=== PATIENT | female | born 1965 | race Caucasian/White ===

== ENCOUNTER 2020-05-21 15:33 | Outpatient (CLI) | payer OTHER, SELFPAY ==
--- NOTE | ~2020-05-21 | MM_ITS ---
EXAMINATION: MM screening mely BI w nyasia HISTORY: Screening mammogram TECHNIQUE: Craniocaudal and mediolateral oblique 3-D tomosynthesis images were obtained and synthetic 2-D images were generated. CAD analysis was submitted and interpreted. COMPARISON: 05/06/2019, 10/29/2015, 07/25/2013 bilateral digital screening mammogram examinations BREAST PARENCHYMAL COMPOSITION: There are scattered areas of fibroglandular density. FINDINGS: Bilateral stable benign intramammary lymph nodes. There is no evidence of suspicious mass, calcification, or architectural distortion to suggest malignancy in either breast. There has been no suspicious interval change. IMPRESSION: 1. No mammographic evidence of malignancy. 2. Recommend routine screening mammography in one year. BI-RADS Category 2: Benign finding(s). Reviewed, dictated and finalized at location A.
== END 2020-05-21 15:34 | disposition home or self-care (01) ==
LOC: ANHIMG 15:36
PROVIDERS: PCP Internal Medicine; Visit Provider Student in an Organized Health Care Education/Training Program
DX: Z12.31 Encounter for screening mammogram for malignant neoplasm of breast (principal)
CPT/HCPCS: 77063; 77067

== ENCOUNTER 2020-07-20 02:30 | Outpatient (CLI) | payer OTHER, SELFPAY ==
[2020-07-20 22:41] LABS: SARS-CoV-2 RNA PCR Negative
== END 2020-07-20 02:31 | disposition home or self-care (01) ==
LOC: ANHCOVIDDT 02:31
PROVIDERS: PCP Internal Medicine; Visit Provider Internal Medicine Gastroenterology
DX: Z01.812 Encounter for preprocedural laboratory examination (principal); Z11.59 Encounter for screening for other viral diseases
CPT/HCPCS: 87635; C9803; U0003

== ENCOUNTER 2020-07-23 00:53 | Day surgery (SDC) | payer OTHER, SELFPAY ==
[2020-07-16 13:24] VITALS: BMI 28.0
[2020-07-23 07:14] VITALS: BP 155/88; PULSE 85; RESP 16; TEMP 36.8; O2SAT 100; BMI 28.8
[2020-07-23] MEDS: LACTATED RINGERS 1,000 ML 150 ML IV CONT (07:29)
--- NOTE | 2020-07-23 07:51 | WPDGICN ---
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 Lundberg syndrome has been confirmed in the family. Plan is for patient have surveillance colonoscopy now and at 2-3 year intervals in the future. (3) Dysphagia: Code(s): R13.10 - Dysphagia, unspecified Status: Acute Assessment and Plan: Because of difficulty swallowing and prior history of esophageal stricture ring an EGD will be performed. Continuing Prilosec daily appears appropriate at this time. GI Consult Note Consult date/time: 07/23/20 07:51 HPI: Jolynn Hernandez is a 55 year old female Presents for surveillance colonoscopy. Patient has a family history of Lundberg syndrome. Patient presents for surveillance examination patient reports her current weight appetite bowel movements are normal. Family history is significant her mother had colon cancer and endometrial cancer was known to have Lundberg syndrome. Patient in reports her bowel habits are normal. She has had no bleeding or weight loss. A colonoscopy will be performed now and should be performed about 2-3 year intervals in the future. Additionally patient complains of difficulty swallowing. Solid foods will catch in the mid substernal portion of the chest. She has a distant history of esophageal stricture ring. She denies any weight loss pain or bleeding. She has been taken Prilosec 20 mg every other day. 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 Glaucoma Post hysterectomy menopause full term x2 Surgical History Surgical History H/O total hysterectomy with removal of both tubes and ovaries History of endometrial ablation Family History Family History Father Hypertension Sibling Patient's brother is in good health Mother Carcinoma of colon Family history of malignant neoplasm of uterus Grandparent Carcinoma of colon Other Cerebrovascular accident Social History Social History Smoking status: Never smoker Second hand tobacco smoke exposure: No Alcohol intake: never Substance use: never Substance use type: does not use Living arrangements: with family Spiritual care concerns: No Meds Home Medications and Allergies Home Medications Medication Instructions Recorded Confirmed Type calcium carbonate 600 mg calcium 600 mg PO DAILY 03/30/20 07/23/20 History (1,500 mg) tablet cholecalciferol (vitamin D3) 125 125 mcg PO DAILY 03/30/20 07/23/20 History mcg (5,000 unit) capsule methyltetrahydrofolate glucosa 30 30 mg PO DAILY 03/30/20 07/23/20 History mg tablet,extended release omeprazole magnesium 20 mg 20 mg PO DAILY 03/30/20 07/23/20 History tablet,delayed release Allergies Allergy/AdvReac Type Severity Reaction Status Date / Time Penicillins Allergy Unknown Rash Verified 07/23/20 07:13 Vital Signs Vital Signs - 24 hr 07/23/20 07:14 Temperature 98.3 F Pulse Rate 85 Respiratory Rate 16 Blood Pressure 155/88 H Pulse Oximetry 100 Exam Narrative: Exam Narrative: Physical exam reveals Vital Signs to be stable. HEENT exam is unremarkable. Patient is anicteric. Lungs are clear to auscultation and percussion. Heart is without murmur or extra sounds. Abdominal exam bowel sounds are present soft nontender with no organ
--- NOTE | 2020-07-23 08:11 | WPDANESEPPF ---
Anes - Initial Pre Proc Eval Procedure: Operation Date: 07/23/20 08:30 Proposed Procedures p Esophagogastroduodenoscopy & Screening Colonoscopy - Skyler Flores MD Date/Time: 07/23/20 08:11 Surgeon: Skyler Flores MD Pre Op Diagnosis: Neoplasm Screening/Hx Colon Polyps/Dysphagia Patient Data Age: 55 Gender: F Height: 5 ft 9 in Weight: 88.4 kg Last Vital Signs Temp 36.8 C 07/23/20 07:14 Pulse 85 07/23/20 07:14 Resp 16 07/23/20 07:14 BP 155/88 H 07/23/20 07:14 Pulse Ox 100 07/23/20 07:14 Allergies Allergy/AdvReac Type Severity Reaction Status Date / Time Penicillins Allergy Unknown Rash Verified 07/23/20 07:13 Home Medications Medication Instructions Recorded Confirmed Type calcium carbonate 600 mg calcium 600 mg PO DAILY 03/30/20 07/23/20 History (1,500 mg) tablet cholecalciferol (vitamin D3) 125 125 mcg PO DAILY 03/30/20 07/23/20 History mcg (5,000 unit) capsule methyltetrahydrofolate glucosa 30 30 mg PO DAILY 03/30/20 07/23/20 History mg tablet,extended release omeprazole magnesium 20 mg 20 mg PO DAILY 03/30/20 07/23/20 History tablet,delayed release Patient hx anesthesia problems: none Family hx anesthesia problems: none PMFSH Past Medical History Medical History 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 Glaucoma Post hysterectomy menopause full term x2 Surgical History Surgical History H/O total hysterectomy with removal of both tubes and ovaries History of endometrial ablation Family History Family History Father Hypertension Sibling Patient's brother is in good health Mother Carcinoma of colon Family history of malignant neoplasm of uterus Grandparent Carcinoma of colon Other Cerebrovascular accident Social History Social History Smoking status: Never smoker Second hand tobacco smoke exposure: No Alcohol intake: never Substance use: never Substance use type: does not use Living arrangements: with family Spiritual care concerns: No Anes - Eval Final PreProcedure Day of Procedure 07/23/20 08:11 Patient weight: overweight Heart: regular rate and rhythm Lungs: clear to auscultation Airway: Mallampati scale class II Neurological: alert and oriented Last oral intake: >/= 8 hours ASA classification: II Emergent: no Anesthetic plan: proceed Anesthesia type and monitoring: general GIVS and standard monitoring Informed Consent: The patient's anesthetic plan and its attendant risks and benefits were discussed with the patient/family/POA. Questions were solicited and answers provided to the satisfaction of the patient/family/POA.
[2020-07-23 09:01] VITALS: BP 136/79; PULSE 79; RESP 21; O2SAT 100
[2020-07-23 09:11] VITALS: BP 134/86; PULSE 72; RESP 18; O2SAT 100
[2020-07-23 09:21] VITALS: BP 135/97; PULSE 73; RESP 17; O2SAT 100
== END 2020-07-23 09:35 | disposition home or self-care (01) ==
PROVIDERS: PCP Internal Medicine; Visit Provider Internal Medicine Gastroenterology
PROC: 0DJ08ZZ Inspection of Upper Intestinal Tract, Via Natural or Artificial Opening Endoscopic (ICD-10-PCS; CPT 43235; principal; 2020-07-23 08:30)
DX: Z12.11 Encounter for screening for malignant neoplasm of colon (principal); Z15.09 Genetic susceptibility to other malignant neoplasm; R13.10 Dysphagia, unspecified; Z80.0 Family history of malignant neoplasm of digestive organs; K64.8 Other hemorrhoids
CPT/HCPCS: 43450; 43235; 45378; C9803; J2001; J2704; J7120; U0003

== ENCOUNTER 2021-12-06 08:46 | Outpatient (CLI) | payer OTHER, SELFPAY ==
--- NOTE | ~2021-12-06 | MM_ITS ---
EXAMINATION: MM screening mely BI w nyasia HISTORY: Screening mammogram TECHNIQUE: Craniocaudal and mediolateral oblique 3-D tomosynthesis images were obtained and synthetic 2-D images were generated. CAD analysis was submitted and interpreted. COMPARISON: 05/21/2020, 05/06/2019, 10/29/2015 bilateral screening mammogram examinations BREAST PARENCHYMAL COMPOSITION: There are scattered areas of fibroglandular density. FINDINGS: There is a new circumscribed 5.4 mm mass in the mid to lower inner left breast. Diagnostic left mammogram and left breast ultrasound examination are recommended. Stable small benign intramammary lymph nodes are noted in both axillary tail areas. Otherwise there is no evidence of suspicious mass, calcification, or architectural distortion to sugg est malignancy in either breast. There has been no other suspicious interval change. IMPRESSION: 1. Interval 5.4 mm circumscribed opacity at mid depth in the inner mid to lower left breast 2. Diagnostic left mammogram and left breast ultrasound examination are recommended BI-RADS Category 0: Incomplete: Needs additional imaging evaluation. Reviewed, dictated and finalized at location A. IMPRESSION: 1. Interval 5.4 mm circumscribed opacity at mid depth in the inner mid to lower left breast 2. Diagnostic left mammogram and left breast ultrasound examination are recomme nded BI-RADS Category 0: Incomplete: Needs additional imaging evaluation.
== END 2021-12-06 08:47 | disposition home or self-care (01) ==
LOC: ANHIMG 08:47
PROVIDERS: PCP Internal Medicine; Visit Provider Student in an Organized Health Care Education/Training Program
DX: Z12.31 Encounter for screening mammogram for malignant neoplasm of breast (principal); R92.8 Other abnormal and inconclusive findings on diagnostic imaging of breast
CPT/HCPCS: 77063; 77067

== ENCOUNTER 2021-12-08 14:02 | Outpatient (CLI) | payer OTHER, SELFPAY ==
--- NOTE | ~2021-12-08 | MMUS_ITS ---
EXAMINATION: MM diagnostic mely LT w nyasia, US breast LT limited HISTORY: Interval 5.4 mm circumscribed opacity at mid depth at the inner mid to lower left breast rep orted on 12/23/2021 screening mammogram TECHNIQUE: Additional 3-D tomosynthesis images of the left breast were performed and synthetic 2-D im ages were generated. CAD analysis was submitted and interpreted. High resolution upper inner and lowe r inner left breast ultrasound was performed. COMPARISON: 01/02/2022 bilateral screening mammogram FINDINGS: MAMMOGRAPHIC FINDINGS: No suspicious reproducible mass is detected. Benign-appearing circumscribed opacity in the posterior upper outer left breast consistent with lymph node. ULTRASOUND: Real-time imaging of upper inner and lower inner quadrants of left breast reveals no evidence of susp icious mass or shadowing. IMPRESSION: 1. No mammographic evidence of malignancy 2. Routine mammographic screening is recommended. BI-RADS Category 1: Negative Reviewed, dictated and finalized at location A. IMPRESSION: 1. No mammographic evidence of malignancy 2. Routine mammographic screening is recommended. BI-RADS Category 1: Negative
== END 2021-12-08 14:03 | disposition home or self-care (01) ==
PROVIDERS: PCP Internal Medicine; Visit Provider Student in an Organized Health Care Education/Training Program
DX: R92.8 Other abnormal and inconclusive findings on diagnostic imaging of breast (principal)
CPT/HCPCS: 76642; 77061; 77065; G0279

== ENCOUNTER 2022-02-10 01:48 | Day surgery (SDC) | payer OTHER, SELFPAY ==
[2022-02-07 12:04] VITALS: BMI 28.3
--- NOTE | 2022-02-07 12:16 | PC.NURSE ---
Report to the Outpatient Waiting Room, entrance under the green pavilion located off [facility], at time 1000 on date 02/10/22. OR Time: 1200. - You and your visitor will be asked a series of questions to screen for COVID 19 for your protection. - Only one visitor is allowed at this time. - The patient visitor is requested to leave or wait in car when not with patient. - A mask is required within the hospital. Patients may have clear liquids (water, carbonated beverages, clear teas, apple juice) until 3 hours prior to surgery with a maximum of 20 ounces. - No food from midnight until time of surgery Take the following medications with a SIP of water the morning of surgery: NONE Medications to discontinue per physician: VITAMINS/SUPPLEMENTS Date to take last dose: 02/06/22 Please no make-up, nail emirati, hairspray, perfume, deodorant, or body powder the day of surgery. No jewelry (including any body piercings) or valuables the day of surgery, leave them at home. Please take a shower or bath the night before, or the morning of, surgery with an antibacterial soap. Wear comfortable, loose fitting clothing. - Jewelry must be removed prior to entering the operating room. Rings and piercings that are not removed may be cut off. - The hospital will not accept responsibility for valuables. - Please leave all valuables, including medications, at home the day of surgery. If you are going home after surgery, a licensed minibus driver must drive you home. - NO public transportation without another adult. - We recommend that an adult stay with you for 24 hours following discharge. - We also recommend that you do not drive, make important decision, drink alcoholic beverages, or take any drugs that were not prescribed by your health care provider for at least 24 hours after your discharge time. Follow any additional instructions given to you from your surgeon. If you or anyone in your household have experienced Covid symptoms in the past week, please notify your surgeon or the nurse liaison at the phone number below for possible testing. Telephone instructions given to PT - GRACIELA MCCRACKEN and asked if any additional questions and then verbalized understanding. Patient advised to call surgeon office or pre surgery nurse liaison [phone] if any additional questions.
--- NOTE | 2022-02-09 10:53 | WPDANESEPPF ---
Anes - Initial Pre Proc Eval Procedure: Operation Date: 02/10/22 12:00 Proposed Procedures p Bilateral Inferior Turbinectomy with Outfracture - Pool Mendez MD s Endoscopic Septoplasty - Pool Mendez MD Date/Time: 02/09/22 10:53 Surgeon: Pool Mendez MD Pre Op Diagnosis: septal deviation, turbinate hypertrophy Patient Data Age: 56 Gender: F Height: 1.77 m Weight: 88.45 kg Allergies Allergy/AdvReac Type Severity Reaction Status Date / Time Penicillins Allergy Unknown Rash Verified 02/10/22 09:24 Home Medications Medication Instructions Recorded Confirmed Type calcium carbonate 600 mg calcium 600 mg PO DAILY 03/30/20 02/10/22 History (1,500 mg) tablet (Calcium) cholecalciferol (vitamin D3) 125 125 mcg PO DAILY 03/30/20 02/10/22 History mcg (5,000 unit) capsule omeprazole magnesium 20 mg 20 mg PO DAILY 03/30/20 02/10/22 History tablet,delayed release (Prilosec OTC) magnesium oxide 400 mg (241.3 mg 400 mg PO DAILY 04/05/21 02/10/22 History magnesium) tablet omega-3 fatty acids 1,000 mg 1,000 mg PO DAILY 04/05/21 02/10/22 History capsule (Fish Oil Concentrate) azelastine 137 mcg (0.1 %) nasal See Rx Instructions .Route 12/06/21 02/10/22 Rx spray aerosol .COMPLEX #30 mL fluticasone propionate 50 1 spray intranasal BID 02/07/22 02/10/22 History mcg/actuation nasal spray,suspension multivitamin 1 tablet PO DAILY 02/07/22 02/10/22 History Patient hx anesthesia problems: none Family hx anesthesia problems: none Results Review: All pre-operative results and documents have been reviewed as part of the pre-operative evaluation. 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 Chronic GERD Glaucoma VASHTI (obstructive sleep apnea) Post hysterectomy menopause full term x2 Surgical History Surgical History H/O total hysterectomy with removal of both tubes and ovaries History of section x 2 History of endometrial ablation Family History Family History Father Hypertension Sibling Patient's brother is in good health Mother Carcinoma of colon Family history of malignant neoplasm of uterus Grandparent Carcinoma of colon Other Cerebrovascular accident Social History Social History Smoking status: Never smoker Second hand tobacco smoke exposure: No Alcohol intake: never Substance use: never Substance use type: does not use Living arrangements: with family Spiritual care concerns: No Anes - Eval Final PreProcedure Day of Procedure 02/09/22 10:53 Patient weight: overweight Heart: regular rate and rhythm Lungs: clear to auscultation Airway: Mallampati scale class II Neurological: alert and oriented Last oral intake: >/= 8 hours ASA classification: II Emergent: no Anesthetic plan: proceed Anesthesia type and monitoring: general ETT and standard monitoring Results Review: All pre-operative results and documents have been reviewed as part of the pre-operative evaluation. Informed Consent: The patient's anesthetic plan and its attendant risks and benefits were discussed with the patient/family/POA. Questions were solicited and answers provided to the satisfaction of the patient/family/POA.
--- NOTE | 2022-02-09 16:47 | PM.IMHP ---
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 Chronic GERD Glaucoma VASHTI (obstructive sleep apnea) Post hysterectomy menopause full term x2 Surgical History Surgical History H/O total hysterectomy with removal of both tubes and ovaries History of section x 2 History of endometrial ablation Family History Family History Father Hypertension Sibling Patient's brother is in good health Mother Carcinoma of colon Family history of malignant neoplasm of uterus Grandparent Carcinoma of colon Other Cerebrovascular accident Social History Social History (Reviewed 12/29/21 @ 10:44 by Jewell Lamb [facility]) Smoking status: Never smoker Second hand tobacco smoke exposure: No Alcohol intake: never Substance use: never Substance use type: does not use Living arrangements: with family Spiritual care concerns: No Meds Home Medications and Allergies Home Medications Medication Instructions Recorded Confirmed Type calcium carbonate 600 mg calcium 600 mg PO DAILY 03/30/20 02/07/22 History (1,500 mg) tablet (Calcium) cholecalciferol (vitamin D3) 125 125 mcg PO DAILY 03/30/20 02/07/22 History mcg (5,000 unit) capsule omeprazole magnesium 20 mg 20 mg PO DAILY 03/30/20 02/07/22 History tablet,delayed release (Prilosec OTC) magnesium oxide 400 mg (241.3 mg 400 mg PO DAILY 04/05/21 02/07/22 History magnesium) tablet omega-3 fatty acids 1,000 mg 1,000 mg PO DAILY 04/05/21 02/07/22 History capsule (Fish Oil Concentrate) azelastine 137 mcg (0.1 %) nasal See Rx Instructions .Route 12/06/21 02/07/22 Rx spray aerosol .COMPLEX #30 mL fluticasone propionate 50 1 spray intranasal BID 02/07/22 02/07/22 History mcg/actuation nasal spray,suspension multivitamin 1 tablet PO DAILY 02/07/22 02/07/22 History Allergies Allergy/AdvReac Type Severity Reaction Status Date / Time Penicillins Allergy Unknown Rash Verified 02/07/22 12:01 Exam Narrative: Septal deviation turbinate hypertrophy Assessment and Plan Assessment and plan (1) Hypertrophy of both inferior nasal turbinates: Code(s): J34.3 - Hypertrophy of nasal turbinates Status: Acute Assessment and Plan: ?Plan is for the operating room for septoplasty endoscopic assisted as well as turbinate reduction submucosal with outfracture.? Risks were discussed including bleeding infection damage to surrounding structures blindness change in vision CSF leak brain damage septal perforation need for further procedures postoperative bleeding.? Patient voiced understanding of all these risks and agreed.? Also the musculoskeletal bruising injury from surgery induction and maintenance of anesthesia damage to any structure damage to any structure above the clavicles by myself.? Will consider hemitransection versus killing given anterior nature of deviation. (2) Nasal congestion: Code(s): R09.81 - Nasal congestion Status: Acute (3) Nasal obstruction: Code(s): J34.89 - Other specified disorders of nose and nasal sinuses Status: Acute (4) Nasal septal deviation: Code(s): J34.2 - Deviated nasal septum Status: Acute
[2022-02-10] VITALS (10 sets, daily range): BP systolic 143–175; BP diastolic 77–108; PULSE 82–92; RESP 12–30; TEMP 36.3–36.7; O2SAT 97–100
--- NOTE | 2022-02-10 07:16 | WPDHPUPDATE1 ---
History and Physical Update Update Date/Time: 02/10/22 07:16 History and Physical has been reviewed, including an updated exam of the patient. There are NO changes in the patient's condition. Risks, benefits, and alternatives have been discussed and questions answered. Patient agrees to proceed with procedure.
[2022-02-10] MEDS: LACTATED RINGERS 1,000 ML 30 ML IV CONT ×2 (09:34→10:42)
[2022-02-10] MEDS: ACETAMINOPHEN 500 MG TABLET 1000 MG PO (09:35)
[2022-02-10] MEDS: ceFAZolin 2 GM/D5W 50 ML 2 GM/50 ML BAG IVPB (09:40)
[2022-02-10] MEDS: OXYMETAZOLINE HCL 0.05% NAS 15 ML BTL (*BKC) 1 SPRAY NASAL (10:02)
[2022-02-10] MEDS: MUPIROCIN 2% OINT 22 GM TUBE 1 APPLIC EACH NARE (10:24)
[2022-02-10] MEDS: LIDO 1%/EPINEPHRINE/PF 1:200,000 30 ML VIAL XX (10:27)
--- NOTE | 2022-02-10 11:02 | P.OP_ITS ---
Procedure Note - Detailed Date of Procedure 02/10/22 Pre-op Diagnosis septal deviation, turbinate hypertrophy , nasal congestion, nasal obstruction Post-op Diagnosis Same Procedure Performed endoscopic assisted septoplasty, inferior turbinate submucosal resection with outfracture Surgeon Pool Mendez MD Anesthesia General Indications see above Findings severely mid to posterior deviated septum large bony spur all removed small perforation on the left nothing on the right looks great postoperatively severely hypertrophied turbinates well reduced minimal bleeding Description of Procedure patient identified consent verified. Patient brought operating. Time-out performed. General anesthesia induced. Endotracheal tube secured. Patient prepped and draped for procedure 2nd time-out performed. Afrin-soaked pledgets placed allowed to sit for 5 minutes then removed. 0 degree endoscope used. Total of about 15 cc 1% lidocaine 1 100,000 parts epinephrine injected deep to the sub mucoperichondrial plane in the bilateral nasal septum and anterior heads of the inferior turbinates. Cuthbert incision made left-sided 15 blade adequate strut left. Left nasal septal flap elevated 7 Bulgarian suction small tear over the severe spur. Crossed over with osteotome right-sided flap elevated with 7 Bulgarian suction. Deviated septum removed combination Julia forceps Donn Sagastume forceps and osteotome as well as deep blade. Nasal septum looks great small perforation left side closed anteriorly 3 interrupted 5 0 fast gut sutures. Inferior turbinates reduced submucosal plane with a microdebrider 2 mm turbinate blade this was bilateral. They were then outfractured with a [place]ow. Great reduction great outfracture. Bilateral nasal passage suction to the posterior choana no active bleeding total blood loss about 20 cc. Kaye splints covered in mupirocin then placed bilaterally sutured anteriorly with a 3 0 mattress nylon suture. I performed all dictated portions no complications. Patient tolerated the procedure excellently. Taken to PACU no complications. Estimated Blood Loss -20.0 Drains No Packing No Pathology None sent Complications No immediate complications Condition Stable Disposition PACU
--- NOTE | 2022-02-10 11:08 | SUR.PHASEI ---
DR. MACKENZIE NOTIFIED OF ELEVATED BP'S; ORDERED 10 MG HYDRALAZINE IVP.
[2022-02-10] MEDS: hydrALAZINE HCL 20 MG/ML VIAL 10 MG IV PUSH (11:12)
--- NOTE | 2022-02-10 11:38 | SUR.PHASEI ---
DR. MACKENZIE CALLED RE: BP 170/98; NO INTERVENTIONS AT THIS TIME.
[2022-02-10] MEDS: oxyCODONE HCL (*CRX) 5 MG TAB IR PO (12:58)
== END 2022-02-10 12:59 | disposition home or self-care (01) ==
PROVIDERS: PCP Internal Medicine; Visit Provider Otolaryngology
PROC: (CPT 30520; principal; 2022-02-10 12:00)
PROC: (CPT 30520; 2022-02-10 12:00)
DX: J34.2 Deviated nasal septum (principal); J34.3 Hypertrophy of nasal turbinates; R09.81 Nasal congestion; J34.89 Other specified disorders of nose and nasal sinuses; K21.9 Gastro-esophageal reflux disease without esophagitis; G47.33 Obstructive sleep apnea (adult) (pediatric)
CPT/HCPCS: 30520; 30140; A9270; J0360; J0690; J1100; J1170; J2250; J2405; J2704; J3010; J7120

== ENCOUNTER 2022-04-03 07:18 | Day surgery (SDC) | payer OTHER, SELFPAY ==
[2022-04-03] VITALS (12 sets, daily range): BP systolic 120–175; BP diastolic 76–106; PULSE 84–107; RESP 14–25; TEMP 36.4–36.6; O2SAT 94–100
--- NOTE | 2022-04-03 07:45 | ECG_ITS ---
Measurements Intervals Ollie Rate: 89 P: 21 VA: 162 QRS: 4 QRSD: 85 T: 37 QT: 354 QTc: 433 Interpretive Statements SINUS RHYTHM LOW QRS VOLTAGE IN PRECORDIAL LEADS [QRS DEFLECTION < 1.0 mV IN CHEST LEADS] CANNOT EXCLUDE PREVIOUS ANTEROSEPTAL IN NO PREVIOUS ECG AVAILABLE FOR COMPARISON Electronically Signed On 04-03-2022 16:58:50 CDT by Tye Ludwig M.D.
[2022-04-03] MEDS: GLUCAGON FOR INJ 1 MG VIAL IM (07:51)
--- NOTE | 2022-04-03 08:11 | ED.SKABFB ---
HPI - Skin/Abscess/Foreign Bdy General Chief complaint: Skin/Abscess/Foreign Body Stated complaint: there is something stuck in my esophagus Time Seen by Provider: 04/03/22 07:41 History of Present Illness HPI narrative: Pt ate candied orange slice last night and felt like it didn't completely go down but was able to swallow secretions. Pt states this morning she ate candied nuts and they got stuck and she is not able to swallow saliva now. Pt has history of esophageal strictures and has been scoped and dilated by Dr Harper in past. Related Data Home Medications Medication Instructions Recorded Confirmed calcium carbonate 600 mg calcium 600 mg PO DAILY 03/30/20 04/03/22 (1,500 mg) tablet (Calcium) cholecalciferol (vitamin D3) 125 125 mcg PO DAILY 03/30/20 04/03/22 mcg (5,000 unit) capsule omeprazole magnesium 20 mg 20 mg PO DAILY 03/30/20 04/03/22 tablet,delayed release (Prilosec OTC) magnesium oxide 400 mg (241.3 mg 400 mg PO DAILY 04/05/21 04/03/22 magnesium) tablet omega-3 fatty acids 1,000 mg 1,000 mg PO DAILY 04/05/21 04/03/22 capsule (Fish Oil Concentrate) fluticasone propionate 50 1 spray intranasal BID 02/07/22 04/03/22 mcg/actuation nasal spray,suspension multivitamin 1 tablet PO DAILY 02/07/22 04/03/22 Allergies Allergy/AdvReac Type Severity Reaction Status Date / Time Penicillins Allergy Unknown Rash Verified 04/03/22 11:43 Review of Systems Review of Systems: All systems reviewed & are unremarkable except as noted in HPI and below PMFSH Past Medical History Medical History 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 Chronic GERD Glaucoma VASHTI (obstructive sleep apnea) Post hysterectomy menopause full term x2 Surgical History Surgical History H/O total hysterectomy with removal of both tubes and ovaries History of section x 2 History of endometrial ablation Family History Family History Father Hypertension Sibling Patient's brother is in good health Mother Carcinoma of colon Family history of malignant neoplasm of uterus Grandparent Carcinoma of colon Other Cerebrovascular accident Social History Social History Smoking status: Never smoker Second hand tobacco smoke exposure: No Alcohol intake: never Substance use: never Substance use type: does not use Spiritual care concerns: No Exam Const: General: healthy appearing and no acute distress Nutritional Appearance: well nourished Orientation/consciousness: patient oriented x3 Limitations: no limitations Chest: Chest palpation & inspection: normal inspection of the chest Resp: Effort & Inspection: normal respiratory effort Auscultation: clear to auscultation bilaterally Cardio: Rate: regular rate Rhythm: regular rhythm GI: GI Palp: Yes Soft to palpation Auscultation: normal bowel sounds Skin: General skin exam: normal color Rashes: no rashes Neuro: General: patient oriented x3, moves all extremities, no meningeal signs and no focal motor deficits Extrem: General: normal to inspection and no clubbing, cyanosis or edema Psych: Mental Status: mental status grossly normal Affect: normal affect Attitude: cooperative Course Course Emergency Course: [place] [address] will try to work pt in for scope this morning Vital Signs Vital signs: Vital Signs Temperature 97.9 F 04/03/22 07:30 Pulse Rate 103 H 04/03/22 07:30 Respiratory Rate 22 H 04/03/22 07:30 Blood Pressure 170/102 H 04/03/22 07:30 Pulse Oximetry 100 04/03/22 07:30 Oxygen Delivery Room Air 04/03/22 07:30 Temperature 97.6 F 04/03/22 11:50 Pulse Rate 87 04/03/22 12:52 Respiratory Rate 25 H 04/03/22 12:52 Blood Pressure 127/83 04/03/22 12:5
[2022-04-03] MEDS: LACTATED RINGERS 1,000 ML 150 ML IV CONT (11:47)
--- NOTE | 2022-04-03 11:50 | WPDANESEPPF ---
Anes - Initial Pre Proc Eval Procedure: Operation Date: 04/03/22 12:30 Proposed Procedures p Esophagogastroduodenoscopy EGD - Skyler Flores MD Date/Time: 04/03/22 11:50 Surgeon: Skyler Flores MD Pre Op Diagnosis: there is something stuck in my esophagus Patient Data Age: 57 Gender: F Height: 1.77 m Weight: 88.6 kg Last Vital Signs Temp 36.6 C 04/03/22 07:30 Pulse 96 04/03/22 10:01 Resp 14 04/03/22 10:01 BP 162/105 H 04/03/22 10:31 Pulse Ox 97 04/03/22 10:01 O2 Del Method Room Air 04/03/22 07:30 Allergies Allergy/AdvReac Type Severity Reaction Status Date / Time Penicillins Allergy Unknown Rash Verified 04/03/22 11:43 Home Medications Medication Instructions Recorded Confirmed Type calcium carbonate 600 mg calcium 600 mg PO DAILY 03/30/20 04/03/22 History (1,500 mg) tablet (Calcium) cholecalciferol (vitamin D3) 125 125 mcg PO DAILY 03/30/20 04/03/22 History mcg (5,000 unit) capsule omeprazole magnesium 20 mg 20 mg PO DAILY 03/30/20 04/03/22 History tablet,delayed release (Prilosec OTC) magnesium oxide 400 mg (241.3 mg 400 mg PO DAILY 04/05/21 04/03/22 History magnesium) tablet omega-3 fatty acids 1,000 mg 1,000 mg PO DAILY 04/05/21 04/03/22 History capsule (Fish Oil Concentrate) fluticasone propionate 50 1 spray intranasal BID 02/07/22 04/03/22 History mcg/actuation nasal spray,suspension multivitamin 1 tablet PO DAILY 02/07/22 04/03/22 History Patient hx anesthesia problems: none Family hx anesthesia problems: none Results Review: All pre-operative results and documents have been reviewed as part of the pre-operative evaluation. 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 Chronic GERD Glaucoma VASHTI (obstructive sleep apnea) Post hysterectomy menopause full term x2 Surgical History Surgical History H/O total hysterectomy with removal of both tubes and ovaries History of section x 2 History of endometrial ablation Family History Family History Father Hypertension Sibling Patient's brother is in good health Mother Carcinoma of colon Family history of malignant neoplasm of uterus Grandparent Carcinoma of colon Other Cerebrovascular accident Social History Social History Smoking status: Never smoker Second hand tobacco smoke exposure: No Alcohol intake: never Substance use: never Substance use type: does not use Spiritual care concerns: No Anes - Eval Final PreProcedure Day of Procedure 04/03/22 11:50 Patient weight: overweight Heart: regular rate and rhythm Lungs: clear to auscultation Airway: Mallampati scale class II Neurological: alert and oriented Last oral intake: >/= 8 hours ASA classification: II Emergent: no Anesthetic plan: proceed Anesthesia type and monitoring: general GIVS and ETT and standard monitoring Results Review: All pre-operative results and documents have been reviewed as part of the pre-operative evaluation. Informed Consent: The patient's anesthetic plan and its attendant risks and benefits were discussed with the patient/family/POA. Questions were solicited and answers provided to the satisfaction of the patient/family/POA.
--- NOTE | 2022-04-03 12:01 | PM.IMHP ---
H&P: HPI History of Present Illness Date/Time: 04/03/22 12:01 Chief Complaint: Food impaction Narrative: this is a 57-year-old white female patient who was in her usual state of health. She ae orange candy yesterday that seemed to have difficulty passing. This morning was unable to eat or swallow any additional intake. She has difficulty even with her own saliva. For this reason she presented to the emergency room was felt to have a food impaction. Patient now is to have EGD to evaluate more thoroughly. She does have a past medical history of difficulty swallowing. Two years ago endoscopy was performed felt to be relatively unremarkable she was dilated empirically at that time and had no difficulty until just recently. patient's past medical history is significant for a family history of Lundberg syndrome. Follow-up colonoscopies have been advised about 2 year intervals because of the strong family history of colon cancer Review of Systems Review of Systems: review of systems noncontributory. 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 Chronic GERD Glaucoma VASHTI (obstructive sleep apnea) Post hysterectomy menopause full term x2 Surgical History Surgical History H/O total hysterectomy with removal of both tubes and ovaries History of section x 2 History of endometrial ablation Family History Family History Father Hypertension Sibling Patient's brother is in good health Mother Carcinoma of colon Family history of malignant neoplasm of uterus Grandparent Carcinoma of colon Other Cerebrovascular accident Social History Social History Smoking status: Never smoker Second hand tobacco smoke exposure: No Alcohol intake: never Substance use: never Substance use type: does not use Spiritual care concerns: No Meds Home Medications and Allergies Home Medications Medication Instructions Recorded Confirmed Type calcium carbonate 600 mg calcium 600 mg PO DAILY 03/30/20 04/03/22 History (1,500 mg) tablet (Calcium) cholecalciferol (vitamin D3) 125 125 mcg PO DAILY 03/30/20 04/03/22 History mcg (5,000 unit) capsule omeprazole magnesium 20 mg 20 mg PO DAILY 03/30/20 04/03/22 History tablet,delayed release (Prilosec OTC) magnesium oxide 400 mg (241.3 mg 400 mg PO DAILY 04/05/21 04/03/22 History magnesium) tablet omega-3 fatty acids 1,000 mg 1,000 mg PO DAILY 04/05/21 04/03/22 History capsule (Fish Oil Concentrate) fluticasone propionate 50 1 spray intranasal BID 02/07/22 04/03/22 History mcg/actuation nasal spray,suspension multivitamin 1 tablet PO DAILY 02/07/22 04/03/22 History Allergies Allergy/AdvReac Type Severity Reaction Status Date / Time Penicillins Allergy Unknown Rash Verified 04/03/22 11:43 Vital Signs Vital Signs - 24 hr 04/03/22 07:30 04/03/22 07:30 04/03/22 08:39 Temperature 97.9 F Pulse Rate 103 H 107 H Respiratory Rate 22 H 25 H Blood Pressure 170/102 H 154/106 H Pulse Oximetry 100 97 Oxygen Delivery Room Air Room Air 04/03/22 08:57 04/03/22 09:01 04/03/22 09:31 Temperature Pulse Rate 91 89 91 Respiratory Rate 14 24 H 22 H Blood Pressure 175/102 H 165/100 H 166/102 H Pulse Oximetry 94 95 94 Oxygen Delivery 04/03/22 10:01 04/03/22 10:31 04/03/22 11:50 Temperature 97.6 F Pulse Rate 96 90 Respiratory Rate 14 18 Blood Pressure 153/104 H 162/105 H 171/106 H Pulse Oximetry 97 98 Oxygen Delivery Room Air 04/03/22 09:15 Temperature Pulse Rate 89 Respiratory Rate 14 Blood Pressure 165/100 H Pulse Oximetry 95 Oxygen Delivery Exam Narrative: Physical exam reveals patient to be alert. Vital signs stable. [facility]
== END 2022-04-03 13:00 | disposition home or self-care (01) ==
LOC: ANHED 09:03 → ANHENDO 09:56
PROVIDERS: Emergency Provider Emergency Medicine; PCP Family Medicine; Visit Provider Internal Medicine Gastroenterology
PROC: 0DJ08ZZ Inspection of Upper Intestinal Tract, Via Natural or Artificial Opening Endoscopic (ICD-10-PCS; CPT 43235; principal; 2022-04-03 12:30)
DX: T18.128A Food in esophagus causing other injury, initial encounter (principal); K22.2 Esophageal obstruction; R13.10 Dysphagia, unspecified; Z15.09 Genetic susceptibility to other malignant neoplasm; Z14.8 Genetic carrier of other disease; K21.9 Gastro-esophageal reflux disease without esophagitis; G47.33 Obstructive sleep apnea (adult) (pediatric)
CPT/HCPCS: 43450; 43235; 93005; J1610; J2704; J7120

== ENCOUNTER 2022-07-25 00:31 | Day surgery (SDC) | payer OTHER, SELFPAY ==
[2022-07-13 09:44] VITALS: BMI 28.9
[2022-07-25 09:15] VITALS: BP 147/89; PULSE 62; RESP 16; TEMP 36.4; O2SAT 100; BMI 28.5
[2022-07-25] MEDS: LACTATED RINGERS 1,000 ML 150 ML IV CONT (09:24)
--- NOTE | 2022-07-25 09:50 | WPDANESEPPF ---
Anes - Initial Pre Proc Eval Procedure: Operation Date: 07/25/22 10:30 Proposed Procedures p Screening Colonoscopy - Skyler Flores MD Date/Time: 07/25/22 09:50 Surgeon: Skyler Flores MD Pre Op Diagnosis: neoplasm screening, fam hx colon CA, Lundberg syndr Patient Data Age: 57 Gender: F Height: 1.75 m Weight: 87.7 kg Last Vital Signs Temp 36.4 C 07/25/22 09:15 Pulse 62 07/25/22 09:15 Resp 16 07/25/22 09:15 BP 147/89 H 07/25/22 09:15 Pulse Ox 100 07/25/22 09:15 O2 Del Method Room Air 07/25/22 09:15 Allergies Allergy/AdvReac Type Severity Reaction Status Date / Time Penicillins Allergy Unknown Rash Verified 07/25/22 09:14 Home Medications Medication Instructions Recorded Confirmed Type calcium carbonate 600 mg calcium 600 mg PO DAILY 03/30/20 07/25/22 History (1,500 mg) tablet (Calcium) cholecalciferol (vitamin D3) 125 125 mcg PO DAILY 03/30/20 07/25/22 History mcg (5,000 unit) capsule omeprazole magnesium 20 mg 20 mg PO DAILY 03/30/20 07/25/22 History tablet,delayed release (Prilosec OTC) magnesium oxide 400 mg (241.3 mg 400 mg PO DAILY 04/05/21 07/25/22 History magnesium) tablet omega-3 fatty acids 1,000 mg 1,000 mg PO DAILY 04/05/21 07/25/22 History capsule (Fish Oil Concentrate) fluticasone propionate 50 1 spray intranasal BID 02/07/22 07/25/22 History mcg/actuation nasal spray,suspension multivitamin 1 tablet PO DAILY 02/07/22 07/25/22 History tavaborole 5 % topical solution 1 applic topical DAILY 07/06/22 07/25/22 History with applicator telmisartan 20 mg tablet 20 mg PO DAILY #90 tabs 07/06/22 07/25/22 Rx Patient hx anesthesia problems: none Family hx anesthesia problems: none Results Review: All pre-operative results and documents have been reviewed as part of the pre-operative evaluation. 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 repeat in 2 years Chronic GERD Glaucoma VASHTI (obstructive sleep apnea) Post hysterectomy menopause full term x2 Surgical History Surgical History H/O total hysterectomy with removal of both tubes and ovaries History of section x 2 History of endometrial ablation History of nasal surgery 02/10/22 Family History Family History Father Hypertension Sibling Patient's brother is in good health Mother Carcinoma of colon Family history of malignant neoplasm of uterus Grandparent Carcinoma of colon Other Cerebrovascular accident Social History Social History Smoking status: Never smoker Second hand tobacco smoke exposure: No Alcohol intake: never Substance use: never Substance use type: does not use Lack of Transportation: No Lack of Food: Never True Current Housing: I Have Housing Concerned About Future Housing: No Difficulty Paying Gas/Electric Bills: No Difficulty Paying for Meds: No Currently Unemployed: No Education: High School Diploma/GED Difficulty w/ Childcare or Family Care: No Living arrangements: with family Spiritual care concerns: No Anes - Eval Final PreProcedure Day of Procedure 07/25/22 09:50 Patient weight: overweight Heart: regular rate and rhythm Lungs: clear to auscultation Airway: Mallampati scale class II Neurological: alert and oriented ASA classification: II Emergent: no Anesthetic plan: proceed Anesthesia type and monitoring: general GIVS and standard monitoring Results Review: All pre-operative results and documents have been reviewed as part of the pre-operative evaluation. Informed Consent: The patient's anesthetic plan and its attendant risks and benefits were discussed with the patient/family/POA. Questions were solicit
--- NOTE | 2022-07-25 10:07 | PM.HPGS ---
History of Present Illness History of Present Illness Consent: Risks, benefits, and alternatives have been discussed and questions answered. Patient agrees to proceed with procedure. Chief complaint: neoplasm screening, fam hx colon CA, Lundberg syndr Narrative: Jolynn Hernandez is a 57 year old female Presents for screening colonoscopy. Patient has a strong family history of colon cancer. Family is felt to have Lundberg syndrome for this reason patient presents for colonoscopy. patient states that her weight appetite bowel movements are normal. She no longer has dysphagia having had EGD earlier this year. Patient requests screening colonoscopy now and typically this done at 2 year intervals. Review of Systems Review of Systems: Review of systems noncontributory. 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 repeat in 2 years Chronic GERD Glaucoma VASHTI (obstructive sleep apnea) Post hysterectomy menopause full term x2 Surgical History Surgical History H/O total hysterectomy with removal of both tubes and ovaries History of section x 2 History of endometrial ablation History of nasal surgery 02/10/22 Family History Family History Father Hypertension Sibling Patient's brother is in good health Mother Carcinoma of colon Family history of malignant neoplasm of uterus Grandparent Carcinoma of colon Other Cerebrovascular accident Social History Social History Smoking status: Never smoker Second hand tobacco smoke exposure: No Alcohol intake: never Substance use: never Substance use type: does not use Lack of Transportation: No Lack of Food: Never True Current Housing: I Have Housing Concerned About Future Housing: No Difficulty Paying Gas/Electric Bills: No Difficulty Paying for Meds: No Currently Unemployed: No Education: High School Diploma/GED Difficulty w/ Childcare or Family Care: No Living arrangements: with family Spiritual care concerns: No Meds Home Medications and Allergies Home Medications Medication Instructions Recorded Confirmed Type calcium carbonate 600 mg calcium 600 mg PO DAILY 03/30/20 07/25/22 History (1,500 mg) tablet (Calcium) cholecalciferol (vitamin D3) 125 125 mcg PO DAILY 03/30/20 07/25/22 History mcg (5,000 unit) capsule omeprazole magnesium 20 mg 20 mg PO DAILY 03/30/20 07/25/22 History tablet,delayed release (Prilosec OTC) magnesium oxide 400 mg (241.3 mg 400 mg PO DAILY 04/05/21 07/25/22 History magnesium) tablet omega-3 fatty acids 1,000 mg 1,000 mg PO DAILY 04/05/21 07/25/22 History capsule (Fish Oil Concentrate) fluticasone propionate 50 1 spray intranasal BID 02/07/22 07/25/22 History mcg/actuation nasal spray,suspension multivitamin 1 tablet PO DAILY 02/07/22 07/25/22 History tavaborole 5 % topical solution 1 applic topical DAILY 07/06/22 07/25/22 History with applicator telmisartan 20 mg tablet 20 mg PO DAILY #90 tabs 07/06/22 07/25/22 Rx Allergies Allergy/AdvReac Type Severity Reaction Status Date / Time Penicillins Allergy Unknown Rash Verified 07/25/22 09:14 Vital Signs Vital Signs - 24 hr 07/25/22 09:15 Temperature 97.6 F Pulse Rate 62 Respiratory Rate 16 Blood Pressure 147/89 H Pulse Oximetry 100 Oxygen Delivery Room Air Exam Narrative: Physical exam reveals patient to be alert. Vital signs stable. HEENT exam is unremarkable. Patient is anicteric. Lungs are clear to auscultation and percussion. Heart is without murmur or extra sounds. Abdomen bowel sounds are present soft nontender with no organomegaly. Digital external rectal exam is normal. Assessment and Plan Assessme
[2022-07-25 11:04] VITALS: BP 110/72; PULSE 74; RESP 22; O2SAT 100
[2022-07-25 11:14] VITALS: BP 138/80; PULSE 73; RESP 17; O2SAT 100
[2022-07-25 11:22] VITALS: BP 134/90; PULSE 69; RESP 22; O2SAT 100
== END 2022-07-25 11:30 | disposition home or self-care (01) ==
PROVIDERS: PCP Family Medicine; Visit Provider Internal Medicine Gastroenterology
PROC: 0DJD8ZZ Inspection of Lower Intestinal Tract, Via Natural or Artificial Opening Endoscopic (ICD-10-PCS; CPT 45378; principal; 2022-07-25 10:30)
DX: Z12.11 Encounter for screening for malignant neoplasm of colon (principal); D12.5 Benign neoplasm of sigmoid colon; K64.8 Other hemorrhoids; Z15.09 Genetic susceptibility to other malignant neoplasm; Z80.0 Family history of malignant neoplasm of digestive organs; K21.9 Gastro-esophageal reflux disease without esophagitis; H40.9 Unspecified glaucoma; G47.33 Obstructive sleep apnea (adult) (pediatric)
CPT/HCPCS: 45380; 88305; J2704; J7120

== ENCOUNTER 2023-01-24 07:15 | Outpatient (CLI) | payer OTHER, SELFPAY ==
--- NOTE | ~2023-01-24 | MM_ITS ---
EXAMINATION: MM screening mely BI w [facility] HISTORY: Screening mammogram TECHNIQUE: Craniocaudal and mediolateral oblique 3-D tomosynthesis images were obtained and synthetic 2-D images were generated. CAD analysis was submitted and interpreted. COMPARISON: 12/08/2021 diagnostic left mammogram and limited left breast ultrasound 12/06/2021, 05/21/2020 bilateral screening mammogram examinations BREAST PARENCHYMAL COMPOSITION: There are scattered areas of fibroglandular density. FINDINGS: Stable low-density circumscribed approximately 5 mm opacity in the mid to lower inner left breast since 12/06/2021. Stable benign-appearing bilateral axillary tail lymph nodes. There is no evidence of suspicious mass, calcification, or architectural distortion to suggest malign shahid in either breast. There has been no suspicious interval change. IMPRESSION: 1. No mammographic evidence of malignancy. 2. Recommend routine screening mammography in one year. BI-RADS Category 2: Benign Reviewed, dictated and finalized at location A.
== END 2023-01-24 07:16 | disposition home or self-care (01) ==
LOC: ANHIMG 07:18
PROVIDERS: PCP Obstetrics & Gynecology; Visit Provider Family Medicine
DX: Z12.31 Encounter for screening mammogram for malignant neoplasm of breast (principal)
CPT/HCPCS: 77063; 77067

== ENCOUNTER 2024-10-09 00:29 | Day surgery (SDC) | payer OTHER, SELFPAY ==
[2024-10-09 09:21] VITALS: BP 127/85; PULSE 83; RESP 16; TEMP 36.1; O2SAT 97
[2024-10-09] MEDS: LACTATED RINGERS 1,000 ML 150 ML IV CONT (09:29)
--- NOTE | 2024-10-09 09:59 | PM.HPGS ---
History of Present Illness History of Present Illness Consent: Risks, benefits, and alternatives have been discussed and questions answered. Patient agrees to proceed with procedure. Chief complaint: personal hx of colon polyps,family robinson of neoplasm Narrative: Jolynn Hernandez is a 59 year old female. Patient has a strong family history of colon cancer. Family is felt to have Lundberg syndrome for this reason patient presents for colonoscopy. She gets screening colonoscopy at 2 year intervals. Last one 2021 with TA polyp. 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 repeat in 2 years full term x2 Glaucoma Surgical History Surgical History History of nasal surgery 02/10/22 History of section x 2 H/O total hysterectomy with removal of both tubes and ovaries History of endometrial ablation Family History Family History Father Hypertension Sibling Patient's brother is in good health Mother Carcinoma of colon Family history of malignant neoplasm of uterus Grandparent Carcinoma of colon Other Cerebrovascular accident Social History Social History Smoking status: Never smoker Second hand tobacco smoke exposure: No Alcohol intake: never Substance use: never Substance use type: does not use Lack of Transportation: No Lack of Food: Never True Current Housing: I Have Housing Concerned About Future Housing: No Difficulty Paying Gas/Electric Bills: No Difficulty Paying for Meds: No Currently Unemployed: No Education: High School Diploma/GED Difficulty w/ Childcare or Family Care: No Living arrangements: with family Spiritual care concerns: No Meds Home Medications and Allergies Home Medications ?Medication ?Instructions ?Recorded ?Confirmed ?Type cholecalciferol (vitamin D3) 125 125 mcg PO DAILY 03/30/20 10/09/24 History mcg (5,000 unit) capsule omeprazole magnesium 20 mg 20 mg PO DAILY 03/30/20 10/09/24 History tablet,delayed release (Prilosec OTC) omega-3 fatty acids 1,000 mg 1,000 mg PO DAILY 04/05/21 10/09/24 History capsule (Fish Oil Concentrate) multivitamin 1 tablet PO DAILY 02/07/22 10/09/24 History epinephrine 0.3 mg/0.3 mL 0.3 mg (0.3 mL) IM ONCE #2 ea 02/21/24 09/29/24 Rx injection, auto-injector (EpiPen 2-Ignacio) amlodipine 5 mg tablet 5 mg PO DAILY #90 tabs 04/25/24 10/09/24 Rx lisinopril 10 mg tablet 10 mg PO DAILY #90 tabs 04/25/24 10/09/24 Rx azelastine 137 mcg (0.1 %) nasal 1 spray intranasal Q12H PRN nasal 07/16/24 09/29/24 History spray congestion fluticasone propionate 50 1 spray intranasal BID PRN nasal 07/16/24 09/29/24 History mcg/actuation nasal congestion spray,suspension magnesium glycinate 200 mg PO DAILY 07/16/24 10/09/24 History Allergies Allergy/AdvReac Type Severity Reaction Status Date / Time Penicillins Allergy Unknown Rash Verified 10/09/24 09:19 Vital Signs Vital Signs - 24 hr 10/09/24 09:21 Temperature 97.0 F L Pulse Rate 83 Respiratory Rate 16 Blood Pressure 127/85 Pulse Oximetry 97 Oxygen Delivery Room Air Exam Const: General: comfortable and no acute distress HENMT: Face/Nose/Sinus: Normal nares present Eyes: General: appearance normal, both eyes and all related structures Neck: Neck: no JVD Resp: Auscultation: clear to auscultation bilaterally Cardio: Rate: regular rate Rhythm: regular rhythm GI: Inspection: non-distended GI Palp: Yes Soft to palpation Skin: General skin exam: normal color Neuro: Speech: normal speech Extrem: General: normal to inspection Psych: Mental Status: mental status grossly normal Assessment and Plan Assessment and plan (1) Family history of colon cancer in mother: Code(s): Z80.0 - Family history of malignant neoplasm of digestive organs Status: Acute Assessment and Plan: colonoscopy (2) Adenomatous colon polyp: Code(s): D12.6 - Benign neoplasm of colon, unspecified Status: Acute
--- NOTE | 2024-10-09 09:59 | WPDANESEPPF ---
Anes - Initial Pre Proc Eval Procedure: Operation Date: 10/09/24 10:30 Proposed Procedures p Colonoscopy - Keith Hernandez MD Date/Time: 10/09/24 09:59 Surgeon: Keith Hernandez MD Pre Op Diagnosis: personal hx of colon polyps,family robinson of neoplasm Patient Data Age: 59 Gender: F Height: 1.75 m Weight: 92.3 kg Last Vital Signs Temp 36.1 C L 10/09/24 09:21 Pulse 83 10/09/24 09:21 Resp 16 10/09/24 09:21 BP 127/85 10/09/24 09:21 Pulse Ox 97 10/09/24 09:21 O2 Del Method Room Air 10/09/24 09:21 Allergies Allergy/AdvReac Type Severity Reaction Status Date / Time Penicillins Allergy Unknown Rash Verified 10/09/24 09:19 Home Medications ?Medication ?Instructions ?Recorded ?Confirmed ?Type cholecalciferol (vitamin D3) 125 125 mcg PO DAILY 03/30/20 10/09/24 History mcg (5,000 unit) capsule omeprazole magnesium 20 mg 20 mg PO DAILY 03/30/20 10/09/24 History tablet,delayed release (Prilosec OTC) omega-3 fatty acids 1,000 mg 1,000 mg PO DAILY 04/05/21 10/09/24 History capsule (Fish Oil Concentrate) multivitamin 1 tablet PO DAILY 02/07/22 10/09/24 History epinephrine 0.3 mg/0.3 mL 0.3 mg (0.3 mL) IM ONCE #2 ea 02/21/24 09/29/24 Rx injection, auto-injector (EpiPen 2-Ignacio) amlodipine 5 mg tablet 5 mg PO DAILY #90 tabs 04/25/24 10/09/24 Rx lisinopril 10 mg tablet 10 mg PO DAILY #90 tabs 04/25/24 10/09/24 Rx azelastine 137 mcg (0.1 %) nasal 1 spray intranasal Q12H PRN nasal 07/16/24 09/29/24 History spray congestion fluticasone propionate 50 1 spray intranasal BID PRN nasal 07/16/24 09/29/24 History mcg/actuation nasal congestion spray,suspension magnesium glycinate 200 mg PO DAILY 07/16/24 10/09/24 History Patient hx anesthesia problems: none Family hx anesthesia problems: none Results Review: All pre-operative results and documents have been reviewed as part of the pre-operative evaluation. 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 repeat in 2 years full term x2 Glaucoma Surgical History Surgical History History of nasal surgery 02/10/22 History of section x 2 H/O total hysterectomy with removal of both tubes and ovaries History of endometrial ablation Family History Family History Father Hypertension Sibling Patient's brother is in good health Mother Carcinoma of colon Family history of malignant neoplasm of uterus Grandparent Carcinoma of colon Other Cerebrovascular accident Social History Social History Smoking status: Never smoker Second hand tobacco smoke exposure: No Alcohol intake: never Substance use: never Substance use type: does not use Lack of Transportation: No Lack of Food: Never True Current Housing: I Have Housing Concerned About Future Housing: No Difficulty Paying Gas/Electric Bills: No Difficulty Paying for Meds: No Currently Unemployed: No Education: High School Diploma/GED Difficulty w/ Childcare or Family Care: No Living arrangements: with family Spiritual care concerns: No Anes - Eval Final PreProcedure Day of Procedure 10/09/24 09:59 Patient weight: obese Heart: regular rate and rhythm Lungs: clear to auscultation Airway: Mallampati scale class II Neurological: alert and oriented Last oral intake: >/= 8 hours ASA classification: II Emergent: no Anesthetic plan: proceed Anesthesia type and monitoring: general GIVS and standard monitoring Results Review: All pre-operative results and documents have been reviewed as part of the pre-operative evaluation. Informed Consent: The patient's anesthetic plan and its attendant risks and benefits were discussed with the patient/family/POA. Questions were solicited and answers provided to the satisfaction of the patient/family/POA.
[2024-10-09 10:13] VITALS: BP 122/74; PULSE 73; RESP 19; O2SAT 98
[2024-10-09 10:23] VITALS: BP 116/71; PULSE 69; RESP 17; O2SAT 99
[2024-10-09 10:33] VITALS: BP 116/66; PULSE 67; RESP 19; O2SAT 98
== END 2024-10-09 10:38 | disposition home or self-care (01) ==
PROVIDERS: PCP Family Medicine; Referring Provider Family Medicine; Visit Provider Internal Medicine Gastroenterology
PROC: 0DJD8ZZ Inspection of Lower Intestinal Tract, Via Natural or Artificial Opening Endoscopic (ICD-10-PCS; CPT 45378; principal; 2024-10-09 10:30)
DX: Z12.11 Encounter for screening for malignant neoplasm of colon (principal); K63.5 Polyp of colon; K57.30 Diverticulosis of large intestine without perforation or abscess without bleeding; K64.8 Other hemorrhoids; Z80.0 Family history of malignant neoplasm of digestive organs; E66.9 Obesity, unspecified; Z68.30 Body mass index [BMI] 30.0-30.9, adult
CPT/HCPCS: 45380; 88305; J2704; J7120